=== PATIENT | female | born 1955 | race Asian ===

== ENCOUNTER 2016-08-21 09:03 | Emergency (ER) | payer OTHER ==
[~2016-08-21] VITALS: Ht 162.6 cm; Wt 51.7 kg
[2016-08-21 09:14] VITALS: BP 82/59
--- NOTE | 2016-08-21 09:18 | NUR ---
Patient ambulated to bed 4. RN evaluating patient at bedside.
--- NOTE | 2016-08-21 09:30 | NUR ---
PATIENT PRESENTS TO ED WITH THROAT PAIN, SHARP PAIN UPON SWALLOWING . PT STATES . DENIES N/V/D; SKIN IS PINK/WARM/DRY; AAOX4 WITH EVEN AND STEADY GAIT; LUNGS CLEAR BL; HR EVEN AND REGULAR; PT DENIES ANY FEVER, CP, SOB, OR COUGH AT THIS TIME; PATIENT STATES PAIN OF 10/10 AT THIS TIME; VSS; PATIENT POSITIONED FOR COMFORT; HOB ELEVATED; BEDRAILS UP X2; BED DOWN. ER MD MADE AWARE OF PT STATUS.
[2016-08-21] MEDS ORDERED: PENICILLIN G BENZATHINE C-R 1.2 MU/2 ML SYR IM ONE (09:40)
--- NOTE | 2016-08-21 10:23 | NUR ---
Patient discharged with v/s stable. Written and verbal after care instructions given and explained. Patient alert, oriented and verbalized understanding of instructions. Ambulatory with steady gait. All questions addressed prior to discharge. ID band removed. Patient advised to follow up with PMD. Rx of CHLORASEPTIC/TYLENOL given. Patient educated on indication of medication including possible reaction and side effects. Opportunity to ask questions provided and answered.
[2016-08-21 10:26] VITALS: BP 117/76
== END 2016-08-21 10:23 | disposition home or self-care (01) ==
LOC: MED 09:03
DX: J02.9 Acute pharyngitis, unspecified (principal)
CPT/HCPCS: 96372; 99283; J0558

== ENCOUNTER 2016-08-29 15:16 | Emergency (ER) | payer OTHER ==
[~2016-08-29] VITALS: Ht 162.6 cm; Wt 51.3 kg
[2016-08-29 16:18] VITALS: BP 113/66
--- NOTE | 2016-08-29 20:00 | NUR ---
Michele willoughby in ED - 08/29/16 at 2030 by YVON CARLO TAVERA. TAKEN TO OF
--- NOTE | 2016-08-29 20:30 | NUR ---
PATIENT LEFT WITHOUT BEING SEEN BY DR. CONNELLY. NO FURTHER CARE PROVIDED FOR PATIENT.
== END 2016-08-29 20:30 | disposition left against medical advice (07) ==
LOC: MED 15:16
DX: M54.5 Low back pain (principal); Z53.21 Procedure and treatment not carried out due to patient leaving prior to being seen by health care provider

== ENCOUNTER 2018-11-15 22:27 | Emergency (ER) | payer OTHER ==
[~2018-11-15] VITALS: Ht 160 cm; Wt 54.4 kg
[2018-11-15 22:37] VITALS: BP 130/90
--- NOTE | 2018-11-15 22:37 | NUR ---
TO BED # 2 AMBULATORY
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
--- NOTE | 2018-11-15 23:02 | NUR ---
Dr. Quinonez examining patient.
[2018-11-15] MEDS ORDERED: PHENAZOPYRIDINE 100 MG TAB PO ONE (23:05)
[2018-11-15] MEDS ORDERED: KETOROLAC 60 MG/2 ML VIAL IM ONE (23:05)
[2018-11-15 23:15] VITALS: BP 124/86
--- NOTE | 2018-11-15 23:15 | NUR ---
Patient discharged with v/s stable. Written and verbal after care instructions given and explained. Patient alert, oriented and verbalized understanding of instructions. Ambulatory with steady gait. All questions addressed prior to discharge. ID band removed. Patient advised to follow up with PMD. Rx of PYRIDIUM, NAPROSYN, KEFLEX given. Patient educated on indication of medication including possible reaction and side effects. Opportunity to ask questions provided and answered.
== END 2018-11-15 23:15 | disposition home or self-care (01) ==
LOC: MED 22:27
DX: N39.0 Urinary tract infection, site not specified (principal)
CPT/HCPCS: 81002; 96372; 99283; J1885

== ENCOUNTER 2019-07-04 21:28 | Emergency (ER) | payer OTHER ==
[~2019-07-04] VITALS: Ht 160 cm; Wt 56.7 kg
[2019-07-04 21:31] VITALS: BP 111/53
--- NOTE | 2019-07-04 21:35 | NUR ---
PT AMBULATED TO BED 1 WITH STEADY GAIT.
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
--- NOTE | 2019-07-04 21:53 | NUR ---
XRAY AT BEDSIDE.
[2019-07-04 22:35] VITALS: BP 111/53
--- NOTE | 2019-07-04 22:36 | NUR ---
Patient discharged with v/s stable. Written and verbal after care instructions given and explained. Patient verbalized understanding. Ambulatory with steady gait. All questions addressed prior to discharge. Advised to follow up with PMD.
== END 2019-07-04 22:36 | disposition home or self-care (01) ==
LOC: MED 21:28
DX: S63.602A Unspecified sprain of left thumb, initial encounter (principal); W22.8XXA Striking against or struck by other objects, initial encounter; Y93.89 Activity, other specified; Y92.89 Other specified places as the place of occurrence of the external cause; Y99.8 Other external cause status
CPT/HCPCS: 29125; 73130; 99283; Q0092

== ENCOUNTER 2020-08-23 18:04 | Emergency (ER) | payer OTHER ==
[~2020-08-23] VITALS: Ht 160 cm; Wt 57.2 kg
[2020-08-23 18:08] VITALS: BP 132/74
--- NOTE | 2020-08-23 18:10 | NUR ---
Patient ambulated from restroom to bed 07 with steady/even gait.
--- NOTE | 2020-08-23 18:15 | NUR ---
Patient provided urine sample at this time.
--- NOTE | 2020-08-23 18:18 | NUR ---
66 y/o F coming in from home with c/c dysuria x 1 week. Patient states dysuria that worsen this morning, urinary urgency and subrapubic pain that she rates 8/10, "sharp/hot," initially constant that is now intermittent, radiating to bilateral flank region. Patient states flank as "soreness," denies any pain. Pt states associated "waekness, feeling more sleepy than usual lately." Pt denies fever, chills, N/V/D, constipation, back pain, SOB, chest pain, headache, dizziness, vision changes. Pt denies taking any medications for the pain prior to arrival; states this has happened in the past "a few years ago." Bowel sounds normoactive x 4 quadrants. Pt placed onto monitoring manager; bed locked in lowest position, side rails x 1. PMH: DM2, hyperlipidemia Meds: Unable to obtain, states "-statin" for HDL NKA Sx: Back disc (titanium screws placed) 2018; 1988.
--- NOTE | 2020-08-23 18:40 | NUR ---
Urine sample handed to Princess yard laborer; Princess made aware of new UA orders placed.
[2020-08-23 18:48] LABS: APPEARANCE,URINE CLEAR (CLEAR); BILIRUBIN,URINE NEGATIVE (NEGATIVE); BLOOD, URINE NEGATIVE (NEGATIVE); COLOR,URINE YELLOW (YELLOW); LEUKOCYTE ESTERASE ,URINE 3+ (NEGATIVE); NITRITE, URINE NEGATIVE (NEGATIVE); UGLUCOSE NEGATIVE (NEGATIVE)
--- NOTE | 2020-08-23 18:49 | NUR ---
Dr. Quinonez is evaluating patient at bedside.
[2020-08-23 18:58] LABS: RBC,URINE 0-5 /HPF (0-5); WBC,URINE 16-25 (MOD) /HPF (0-5)
[2020-08-23] MEDS ORDERED: KETOROLAC 30 MG/ML VIAL IM ONE (19:05)
[2020-08-23] MEDS ORDERED: cefTRIAXone 1,000 MG in LIDOCAINE MPF 1% 2.1 ML IM ONE (19:05)
[2020-08-23] MEDS ORDERED: PHENAZOPYRIDINE 100 MG TAB PO ONE (19:05)
--- NOTE | 2020-08-23 19:05 | NUR ---
RECEIVED REPORT FROM OLAMIDE RN FOR CONTINUITY OF CARE
[2020-08-23] MEDS ORDERED: PYR100 PO (19:08)
[2020-08-23] MEDS ORDERED: CEPH500C16 PO (19:08)
[2020-08-23] MEDS ORDERED: cefTRIAXone 1,000 MG VIAL ONE (19:10)
--- NOTE | 2020-08-23 19:10 | NUR ---
Report and transfer of care given to LITZY Stephenson.
[2020-08-23] MEDS ORDERED: LIDOCAINE MPF 1% 5 ML ONE (19:11)
[2020-08-23 19:23] VITALS: BP 132/74
--- NOTE | 2020-08-23 19:23 | NUR ---
Patient discharged with v/s stable. Written and verbal after care instructions given and explained. Patient alert, oriented and verbalized understanding of instructions. Ambulatory with steady gait. All questions addressed prior to discharge. ID band removed. Patient advised to follow up with PMD. Rx of cEPHALEXIN, pHENAZOPYRIDINE given. Patient educated on indication of medication including possible reaction and side effects. Opportunity to ask questions provided and answered. Addendum: 08/24/20 at 0009 by [email or web address] DISCHARGE TIME CHANGED TO: 1922
== END 2020-08-23 19:23 | disposition home or self-care (01) ==
LOC: MED 18:04
DX: N39.0 Urinary tract infection, site not specified (principal); E11.9 Type 2 diabetes mellitus without complications; E78.00 Pure hypercholesterolemia, unspecified; Z79.899 Other long term (current) drug therapy
CPT/HCPCS: 81001; 87086; 96372; 99284; J0696; J1885; J2001

== ENCOUNTER 2021-01-05 23:30 | Emergency (ER) | payer OTHER ==
[~2021-01-05 23:30] MED LIST: CEPH500C16 PO; PYR100 PO
== END 2021-01-05 23:50 | disposition left against medical advice (07) ==
LOC: MED 23:30
DX: Z53.21 Procedure and treatment not carried out due to patient leaving prior to being seen by health care provider (principal)

== ENCOUNTER 2021-08-23 19:48 | Emergency (ER) | payer OTHER ==
[~2021-08-23] VITALS: Ht 160 cm; Wt 56.7 kg
[2021-08-23 20:23] VITALS: BP 143/65
--- NOTE | 2021-08-23 21:44 | NUR ---
AMBULATED TO BED #4
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
--- NOTE | 2021-08-23 21:54 | NUR ---
Dr. Harris examining patient.
[2021-08-23 21:59] VITALS: BP 143/65
== END 2021-08-23 21:59 | disposition home or self-care (01) ==
LOC: MED 19:48
DX: S90.31XA Contusion of right foot, initial encounter (principal); W54.1XXA Struck by dog, initial encounter; Y93.89 Activity, other specified; Y92.830 Public park as the place of occurrence of the external cause; Y99.8 Other external cause status
CPT/HCPCS: 73610; 73630; 99284

== ENCOUNTER 2021-09-24 19:55 | Emergency (ER) | payer OTHER ==
[~2021-09-24] VITALS: Ht 160 cm; Wt 56.7 kg
[2021-09-24 20:32] VITALS: BP 104/62
--- NOTE | 2021-09-24 23:24 | NUR ---
Dr. Kowalski examming patient.
[2021-09-24] MEDS ORDERED: IBUPROFEN 800 MG TAB PO ONE (23:35)
[2021-09-24] MEDS ORDERED: IBUP-2218 PO (23:37)
[2021-09-24 23:59] VITALS: BP 148/84
== END 2021-09-24 23:59 | disposition home or self-care (01) ==
LOC: MED 19:55
DX: S83.91XA Sprain of unspecified site of right knee, initial encounter (principal); E11.9 Type 2 diabetes mellitus without complications; Z79.1 Long term (current) use of non-steroidal anti-inflammatories (NSAID); Z79.899 Other long term (current) drug therapy; Z79.2 Long term (current) use of antibiotics; W01.0XXA Fall on same level from slipping, tripping and stumbling without subsequent striking against object, initial encounter; Y92.009 Unspecified place in unspecified non-institutional (private) residence as the place of occurrence of the external cause; Y93.89 Activity, other specified; Y99.8 Other external cause status
CPT/HCPCS: 73562; 99283

== ENCOUNTER 2022-03-21 14:10 | Emergency (ER) | payer OTHER ==
[~2022-03-21] VITALS: Ht 152.4 cm; Wt 57.2 kg
[~2022-03-21 14:10] MED LIST changes: +IBUP-2218 PO
[2022-03-21 14:30] VITALS: BP 105/69
[2022-03-21 15:10] LABS: BASOPHILS % (AUTO) 0.5 % (0.0-2.0); EOSINOPHILS # (AUTO) 0.1 K/uL (0-0.4); HEMATOCRIT 39.8 % (36-48); HEMOGLOBIN 13.6 g/dL (12.0-16.0); LYMPHOCYTES # (AUTO) 2.9 K/uL (2.5-16.5); LYMPHOCYTES % (AUTO) 58.3 % (20.5-51.1); MEAN CORPUSCULAR HEMOGLOBIN 30 pg (27-31); MEAN CORPUSCULAR HGB CONC 34 g/dL (33-37); MEAN CORPUSCULAR VOLUME 86.8 fL (80-94); MONOCYTES # (AUTO) 0.3 K/uL (0.8-1.0); MONOCYTES % (AUTO) 6.8 % (1.7-9.3); NEUTROPHILS # (AUTO) 1.7 K/uL (1.8-7.7); NEUTROPHILS % (AUTO) 33.4 % (42.2-75.2); PLATELET COUNT (AUTO) 185 K/uL (140-450); RED BLOOD CELL COUNT(AUTO) 4.58 MIL/uL (4.20-5.40); RED CELL DISTRIBUTION WIDTH 14.7 % (11.6-13.7)
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
[2022-03-21 15:35] LABS: ALBUMIN 3.8 g/dL (3.4-5.0); CARBON DIOXIDE 28.6 mmol/L (21-32); CREATININE 0.6 mg/dL (0.6-1.3); TOTAL BILIRUBIN 0.3 mg/dL (0.0-1.0)
[2022-03-21 15:42] LABS: ANION GAP 9.6 (8-16); POTASSIUM 4.2 mmol/L (3.5-5.1)
[2022-03-21 16:22] VITALS: BP 141/85
[2022-03-21] MEDS ORDERED: PRED20TA5 PO (17:38)
--- NOTE | 2022-03-21 17:39 | NUR ---
IV removed, catheter intact and site benign. Applied folded 4x4 gauze and tape to stop bleeding.
--- NOTE | 2022-03-21 17:41 | NUR ---
Patient discharged with v/s stable. Written and verbal after care instructions FOR CONFUSION given and explained. Patient alert, oriented and verbalized understanding of instructions. Ambulatory with steady gait. All questions addressed prior to discharge. ID band removed. Patient advised to follow up with PMD. Rx of PREDNISONE given. Opportunity to ask questions provided and answered.
== END 2022-03-21 17:41 | disposition home or self-care (01) ==
LOC: MED 14:10
DX: R41.0 Disorientation, unspecified (principal); Z20.822 Contact with and (suspected) exposure to COVID-19; E11.9 Type 2 diabetes mellitus without complications; Z79.899 Other long term (current) drug therapy; Z98.890 Other specified postprocedural states
CPT/HCPCS: 36415; 70450; 71045; 80053; 81002; 83880; 84484; 85025; 87426; 93005; 99285; Q0092

== ENCOUNTER 2022-07-18 22:59 | Emergency (ER) | payer OTHER ==
[~2022-07-18] VITALS: Ht 160 cm; Wt 56.7 kg
[~2022-07-18 22:59] MED LIST changes: +PRED20TA5 PO
--- NOTE | 2022-07-18 23:00 | NUR ---
66 YO F BIB FROM HOME WITH C/C OF LEFT SIDED NUMBNESS WITH WEAKNESS SINCE 2249. PT IS UNABLE TO HOLD UP BILAT ARMS AND LEGS. NO FACIAL DROOP OBSERVED. NO SLURRING OF SPEECH. PT REPORTS SEVERE WEAKNESS. HX:HTN NKA Addendum: 07/19/22 at 0024 by [facility] VP AD SALES [employer] APPARENT, LEFT SIDE IS WEAKER THAN RIGHT.
[2022-07-18 23:09] VITALS: BP 120/58
--- NOTE | 2022-07-18 23:09 | NUR ---
TO BED VIA WHEELCHAIR
--- NOTE | 2022-07-18 23:22 | NUR ---
LISBETH GERMAN AT BEDSIDE.
--- NOTE | 2022-07-18 23:25 | NUR ---
LAST KNOWN NORMAL 7250
--- NOTE | 2022-07-18 23:31 | NUR ---
23:31 TELE NEURO; AT BEDSIDE.
--- NOTE | 2022-07-18 23:35 | NUR ---
Pt taken to CT
[2022-07-18 23:46] LABS: BASOPHILS % (AUTO) 0.6 % (0.0-2.0); EOSINOPHILS % (AUTO) 0.5 % (0.0-4.0); HEMATOCRIT 39.4 % (36-48); HEMOGLOBIN 14.7 g/dL (12.0-16.0); LYMPHOCYTES % (AUTO) 63.9 % (20.5-51.1); MEAN CORPUSCULAR HEMOGLOBIN 33 pg (27-31); MEAN CORPUSCULAR HGB CONC 37 g/dL (33-37); MEAN CORPUSCULAR VOLUME 88.5 fL (80-94); MONOCYTES # (AUTO) 0.4 K/uL (0.8-1.0); MONOCYTES % (AUTO) 5.8 % (1.7-9.3); NEUTROPHILS # (AUTO) 2.3 K/uL (1.8-7.7); NEUTROPHILS % (AUTO) 29.2 % (42.2-75.2); PLATELET COUNT (AUTO) 223 K/uL (140-450); RED BLOOD CELL COUNT(AUTO) 4.45 MIL/uL (4.20-5.40); RED CELL DISTRIBUTION WIDTH 15.7 % (11.6-13.7); WHITE BLOOD COUNT (AUTO) 7.8 K/uL (4.8-10.8)
--- NOTE | 2022-07-18 23:47 | NUR ---
PT BACK FROM CT.
--- NOTE | 2022-07-18 23:48 | NUR ---
TELE NEURO AT BEDSIDE; WITH .
[2022-07-18] MEDS ORDERED: TENECTEPLASE 50 MG KIT IV ONE (23:55)
--- NOTE | 2022-07-18 23:55 | NUR ---
of pt at bedside
[2022-07-18] MEDS ORDERED: ALTEPLASE 0 MG IV ONE (23:56)
--- NOTE | 2022-07-19 00:08 | NUR ---
Tnkase 14 mg was administered via IV as ordered by DEONDRE CALZADA.
[2022-07-19] MEDS ORDERED: TENECTEPLASE 50 MG KIT IV ONE (00:10)
[2022-07-19 00:26] LABS: APPEARANCE,URINE SL CLOUDY (CLEAR); BILIRUBIN,URINE NEGATIVE (NEGATIVE); BLOOD, URINE NEGATIVE (NEGATIVE); COLOR,URINE YELLOW (YELLOW); LEUKOCYTE ESTERASE ,URINE TRACE (NEGATIVE); NITRITE, URINE NEGATIVE (NEGATIVE); UGLUCOSE 1+ (NEGATIVE)
[2022-07-19 00:31] LABS: ALBUMIN 4.3 g/dL (3.4-5.0); ANION GAP 17.6 (8-16); CARBON DIOXIDE 24.4 mmol/L (21-32); CHLORIDE 98 mmol/L (98-107); CREATININE 0.7 mg/dL (0.6-1.3); GFR ARICAN-AMERICAN 108 mL/min (>90); GLUCOSE 234 mg/dL (74-106); SODIUM SERUM 137 mmol/L (136-145); TOTAL BILIRUBIN 0.8 mg/dL (0.0-1.0); UREA NITROGEN, BLOOD 22 mg/dL (7-18)
[2022-07-19 00:32] LABS: RBC,URINE 0-5 /HPF (0-5)
[2022-07-19 00:36] VITALS: BP 139/77
--- NOTE | 2022-07-19 00:46 | NUR ---
PER LAB BLOOD IS TOO THICK, WILL BE SENT OUT. MADE AWARE.
--- NOTE | 2022-07-19 00:48 | NUR ---
[facility] ARRIVED FOR [facility]
--- NOTE | 2022-07-19 00:50 | NUR ---
Called [facility] ER and spoke to LITZY Hollis. Gave report to LITZY Hollis about patient's case and the ETA for pick-up.
[2022-07-19 00:58] LABS: BARBITURATE, URINE NEGATIVE ng/ml (NEG <=200); BENZODIAZEPINE, URINE POSITIVE ng/mL (NEG <=200); CANNABINOID, URINE NEGATIVE ng/mL (NEG <=50); COCAINE, URINE NEGATIVE ng/mL (NEG <=300); OPIATE, URINE NEGATIVE ng/mL (NEG <=2000); PHENCYCLIDINE SCREEN,URINE NEGATIVE ng/mL (NEG <=25)
--- NOTE | 2022-07-19 01:00 | NUR ---
Patient to be transferred to [facility] ER. Is being transferred due to Stroke. Receiving facility has accepting physician and available space. ER physician has signed transfer form. Patient or responsible libertarian has agreed to transfer and signed form. Patient belongings inventoried and will be sent with patient. Copy of nursing notes, lab reports, EKG, Physicians Orders and X-rays to be sent with patient. Report called to LITZY Hollis at receiving facility. [facility] ambulance service has been called for transfer. ETA is 5 min.
--- NOTE | 2022-07-19 01:00 | NUR ---
Patient to be transferred to [facility] ER. Is being transferred due to HIGHER LEVEL OF CARE. Receiving facility has accepting physician and available space. ER physician has signed transfer form. Patient or responsible republican has agreed to transfer and signed form. Patient belongings inventoried and will be sent with patient. Copy of nursing notes, lab reports, EKG, Physicians Orders and X-rays to be sent with patient. Report called to LITZY OWENS at receiving facility. [facility] ambulance service has been called for transfer. ETA is 10MINS.
--- NOTE | 2022-07-19 01:33 | NUR ---
0130 LIND HIRO BROWN: SAYING CHART IS NOT COMPLETE. AND CHARGE NURSE JOHANNA DUQUE CHECKED AND SENT EVERYTHING OVER.
--- NOTE | 2022-07-19 02:39 | NUR ---
0239 FAXED OVER THE REST OF THE LAB RESULTS TO [facility].
[2022-07-24 13:12] LABS: ASPARTATE AMINOTRANSFERASE 28 U/L (15-37)
== END 2022-07-19 01:00 | disposition short-term general hospital (02) ==
LOC: MED 22:59
DX: I63.9 Cerebral infarction, unspecified (principal); R53.1 Weakness; R20.2 Paresthesia of skin; E11.9 Type 2 diabetes mellitus without complications; Z20.822 Contact with and (suspected) exposure to COVID-19; Z98.890 Other specified postprocedural states; Z79.899 Other long term (current) drug therapy; Z79.1 Long term (current) use of non-steroidal anti-inflammatories (NSAID); Z79.2 Long term (current) use of antibiotics
CPT/HCPCS: 36415; 37195; 70450; 71045; 80053; 80305; 81001; 84484; 85025; 86886; 86900; 86901; 87086; 87426; 93005; 99291; J3101; Q0092; 85610; 85730; J2997

== ENCOUNTER 2022-08-26 10:29 | Day surgery (SDC) | payer OTHER ==
[~2022-08-26] VITALS: Ht 160 cm; Wt 56.7 kg
[2022-08-26] MEDS ORDERED: MIDAZOLAM 2 MG/2 ML VIAL ONE (11:57)
[2022-08-26] MEDS ORDERED: fentaNYL citrate 0.05 MG/ML VIAL ONE (11:57)
[2022-08-26] MEDS ORDERED: MIDAZOLAM 2 MG/2 ML VIAL IV ONE (12:57)
== END 2022-08-26 13:53 | disposition home or self-care (01) ==
LOC: MOR 10:29 → MMU 10:29 → MOR 13:53
PROVIDERS: ATTEND Internal Medicine Gastroenterology
DX: R11.2 Nausea with vomiting, unspecified (principal); E11.9 Type 2 diabetes mellitus without complications; E78.00 Pure hypercholesterolemia, unspecified; F32.A Depression, unspecified; Z80.0 Family history of malignant neoplasm of digestive organs; M19.90 Unspecified osteoarthritis, unspecified site; M85.80 Other specified disorders of bone density and structure, unspecified site; Z20.822 Contact with and (suspected) exposure to COVID-19
CPT/HCPCS: 36415; 43239; 86677; 87426; J2250; J3010

== ENCOUNTER 2022-12-02 07:57 | Day surgery (SDC) | payer OTHER ==
[~2022-12-02] VITALS: Ht 160 cm; Wt 56.7 kg
[2022-12-02] MEDS ORDERED: fentaNYL citrate 0.05 MG/ML VIAL ONE (09:43)
[2022-12-02] MEDS ORDERED: LIDOCAINE 2% 100 MG/5 ML UJET TP ONE (09:43)
[2022-12-02] MEDS ORDERED: MIDAZOLAM 2 MG/2 ML VIAL ONE (09:43)
[2022-12-02] MEDS ORDERED: MIDAZOLAM 2 MG/2 ML VIAL IVP ONE ×2 (11:15→12:15)
[2022-12-02] MEDS ORDERED: fentaNYL citrate 0.05 MG/ML VIAL IVP ONE (11:15)
== END 2022-12-02 11:54 | disposition home or self-care (01) ==
LOC: MOR 07:57 → MMU 07:58 → MOR 11:54
PROVIDERS: ATTEND Internal Medicine Gastroenterology
DX: Z12.11 Encounter for screening for malignant neoplasm of colon (principal); E11.9 Type 2 diabetes mellitus without complications; Z80.0 Family history of malignant neoplasm of digestive organs
CPT/HCPCS: 82948; G0105; J2250; J3010

== ENCOUNTER 2023-05-26 21:19 | Emergency (ER) | payer OTHER ==
[~2023-05-26] VITALS: Ht 160 cm; Wt 54.4 kg
[2023-05-26 21:20] VITALS: BP 139/90; PULSE 90; RESP 18; TEMP 97.8; O2SAT 99
[2023-05-26 23:00] LABS: APPEARANCE,URINE CLEAR (CLEAR); BILIRUBIN,URINE NEGATIVE (NEGATIVE); BLOOD, URINE NEGATIVE (NEGATIVE); COLOR,URINE YELLOW (YELLOW); LEUKOCYTE ESTERASE ,URINE NEGATIVE (NEGATIVE); NITRITE, URINE NEGATIVE (NEGATIVE); PH,URINE 6.5 (5.0-9.0); PROTEIN,URINE NEGATIVE (NEGATIVE); UGLUCOSE NEGATIVE (NEGATIVE); UROBILINOGEN,URINE 0.2 EU/dL (0.2 - 1)
[2023-05-26] MEDS ORDERED: KETOROLAC 30 MG/ML VIAL IM ONE (23:55)
[2023-05-27 01:26] LABS: FLU A ANTIGEN negative (NEGATIVE); FLU B ANTIGEN negative (NEGATIVE)
[2023-05-27 01:30] VITALS: BP 130/87; PULSE 78; RESP 18; TEMP 97.8; O2SAT 98
[2023-05-27] MEDS ORDERED: NAPR-1704 PO (01:30)
[2023-05-27] MEDS ORDERED: BENZSPR MC (01:34)
== END 2023-05-27 01:30 | disposition home or self-care (01) ==
LOC: MED 21:19
DX: J02.9 Acute pharyngitis, unspecified (principal); Z20.822 Contact with and (suspected) exposure to COVID-19; E11.9 Type 2 diabetes mellitus without complications; Z98.890 Other specified postprocedural states; Z79.899 Other long term (current) drug therapy; Z79.1 Long term (current) use of non-steroidal anti-inflammatories (NSAID); Z79.2 Long term (current) use of antibiotics
CPT/HCPCS: 81003; 87081; 87426; 87804; 96372; 99283; J1885